=== PATIENT | female | born 1995 | race Caucasian/White ===

== ENCOUNTER 2018-01-21 19:11 | Emergency (ER) | payer OTHER, SELFPAY ==
[2018-01-21 19:22] VITALS: BP 106/52; PULSE 54; RESP 16; TEMP 37.3; O2SAT 96; BMI 23.0
--- NOTE | 2018-01-21 19:55 | ED.ABDPAIN ---
HPI - Abdominal Pain <MI Cosme - Last Filed: 01/21/18 22:23> General Chief Complaint: Abdominal Pain Stated Complaint: SENT FROM WALK IN FOR CT Time Seen by Provider: 01/21/18 19:17 Source: patient Mode of arrival: ambulatory Limitations: no limitations History of Present Illness HPI narrative: 22-year-old female here for complaint of suprapubic pain over the past 5-6 days. She states that she was playing rugby when she had a collision with another player who is knee hit her in the abdomen there. She states that she was seen in [place] for this same incident and head CT done. She reports that it was reported that she had some bleeding in her muscle area and also had some fluid in her abdomen and was requested that she get a repeat CT later in the week. She is here to get repeat CT. She reports that she has had some improvement of her abdominal pain. She denies any blood in her urine. No fevers no chills. No other concerns or complaints at this time. complaint: abdominal pain Related Data Home Medications Medication Instructions Recorded Confirmed No Known Home Medications 01/21/18 01/21/18 Allergies Allergy/AdvReac Type Severity Reaction Status Date / Time No Known Drug Allergies Allergy Unverified 01/21/18 18:09 Review of Systems <MI Cosme - Last Filed: 01/21/18 22:23> Constitutional Denies chills, Denies fever(s), Denies lethargy and Denies weakness Eyes Denies change in vision, Denies eye discharge, Denies irritation and Denies loss of vision ENT Ears, Nose, Mouth, and Throat: Denies change in voice, Denies neck pain and Denies sore throat Cardiovascular Denies chest pain, Denies irregular heart rhythm, Denies lightheadedness, Denies palpitations, Denies dyspnea, Denies dyspnea on exertion and Denies orthopnea Respiratory Denies cough, Denies dyspnea, Denies dyspnea on exertion and Denies wheezing Gastrointestinal Gastrointestinal: Reports abdominal pain, Denies change in bowel habits, Denies diarrhea, Denies nausea and Denies vomiting Musculoskeletal Denies neck pain Neurologic Denies loss of vision and Denies weakness Endocrine Denies palpitations Allergic/Immunologic Denies wheezing Exam <MI Cosme - Last Filed: 01/21/18 22:23> Initial Vital Signs Initial Vital Signs: Vital Signs Temperature 99.2 F 01/21/18 19:22 Pulse Rate 54 L 01/21/18 19:22 Respiratory Rate 16 01/21/18 19:22 Blood Pressure 106/52 L 01/21/18 19:22 Pulse Oximetry 96 01/21/18 19:22 Const General: cooperative and well developed Nutritional Appearance: well nourished Orientation: alert, awake, oriented x3 and not confused [facility] Mouth: oral mucosae normal and moist mucous membranes Eyes General: appearance normal, both eyes and all related structures Eyelids: eyelids normal Conjunctivae: conjunctivae normal Sclera: sclerae normal Pupils: PERRL EOM: EOM intact bilaterally Neck Neck: normal visual inspection, trachea midline, No lymphadenopathy, No midline deformity and No JVD Lymphatic: No lymphedema Chest Chest: normal inspection of the chest Resp Effort & Inspection: normal respiratory effort, able to speak in complete sentences, no respiratory distress and no use of accessory muscles Auscultation: clear to auscultation bilaterally, no rales, no rhonchi and no wheezes Cardio Rate: regular rate Rhythm: regular rhythm Heart Sounds: no click, no gallops, no murmurs and no rubs Pulses: normal peripheral pulses GI Inspection: non-distended Palpation: soft, no hepatosplenomegaly, No guarding, No pulsatile mass and No tender Auscultation: normal bowel sounds Skin General: no rashes or lesions noted, No jaundice and No petechiae Neuro General: alert, oriented x3, gait normal and no focal motor deficits Speech: speech normal <Italo Rivera DO - Last Filed: 01/22/18 02:13> Initial Vital Signs Initial Vital Signs: Vital Signs Temperature 99.2 F 01/21/18 19:22 Pulse Rate 54 L 01/21/18 19:22 Respiratory Rate 16 01/21/18 19:22 Blood Pressure 106/52 L 01/21/18 19:22 Pulse Oximetry 96 01/21/18 19:22 Course <MI Cosme - Last Filed: 01/21/18 22:23> Orders Ordered: ED Orders 01/21/18 20:09 Complete Blood Count AUTO DIFF Stat Comprehensive Metabolic Panel Stat 01/21/18 21:06 CT abdomen pelvis w con Stat Discontinued Medications Sodium Chloride (Normal Saline 0.9%) 1,000 mls @ 1,000 mls/hr IV BOLUS ONE Stop: 01/21/18 21:00 Last Infusion: 01/21/18 21:37 Dose: 0 mls/hr Admin: 01/21/18 20:19 Dose: 1,000 mls/hr Vital Signs - 8 hr 01/21/18 19:22 01/21/18 19:57 01/21/18 20:41 Temperature 99.2 F 99.2 F 98.0 F Pulse Rate 54 L 54 L 50 L Respiratory Rate 16 16 16 Blood Pressure 106/52 L 106/52 L Blood Pressure [Right Arm] 97/54 L Pulse Oximetry 96 96 100 01/21/18 22:17 Temperature 97.4 F L Pulse Rate 56 L Respiratory Rate 16 Blood Pressure Blood Pressure [Right Arm] 97/53 L Pulse Oximetry 100 <Italo Rivera DO - Last Filed: 01/22/18 02:13> Orders Ordered: ED Orders 01/21/18 20:09 Complete Blood Count AUTO DIFF Stat Comprehensive Metabolic Panel Stat 01/21/18 21:06 CT abdomen pelvis w con Stat Discontinued Medications Sodium Chloride (Normal Saline 0.9%) 1,000 mls @ 1,000 mls/hr IV BOLUS ONE Stop: 01/21/18 21:00 Last Infusion: 01/21/18 21:37 Dose: 0 mls/hr Admin: 01/21/18 20:19 Dose: 1,000 mls/hr Vital Signs - 8 hr 01/21/18 19:22 01/21/18 19:57 01/21/18 20:41 Temperature 99.2 F 99.2 F 98.0 F Pulse Rate 54 L 54 L 50 L Respiratory Rate 16 16 16 Blood Pressure 106/52 L 106/52 L Blood Pressure [Right Arm] 97/54 L Pulse Oximetry 96 96 100 01/21/18 22:17 Temperature 97.4 F L Pulse Rate 56 L Respiratory Rate 16 Blood Pressure Blood Pressure [Right Arm] 97/53 L Pulse Oximetry 100 MDM - Abdominal Pain <MI Cosme - Last Filed: 01/21/18 22:23> Lab Data Result diagrams: 01/21/18 20:09 01/21/18 20:09 Lab Results 01/21/18 01/21/18 Range/Units 20:09 20:09 WBC 5.9 (4.5-11.0) X10^3/uL RBC 4.01 (4.0-5.2) X10^6/uL Hgb 12.4 (12.0-16.0) g/dL Hct 37.4 (36-46) % MCV 93.3 (80-100) fL MCH 30.8 (26-34) PG MCHC 33.0 (30-36) % RDW 14.0 (11.6-14.8) % Plt Count 277 (150-400) X10^3/uL Neut % (Auto) 44.5 L (50-75) % Lymph % (Auto) 46.7 H (25-40) % Pleasants % (Auto) 5.8 (3-14) % Eos % (Auto) 2.1 (2-4) % Baso % (Auto) 0.9 (0-2) % Neut # (Auto) 2600 L (2748-6906) /uL Sodium 140 (137-145) mmol/L Potassium 4.1 (3.4-5.1) mmol/L Chloride 102 (98-107) mmol/L Carbon Dioxide 28 (22-32) mmol/L BUN 20 H (7-17) mg/dL Creatinine 0.80 (0.52-1.04) mg/dL Estimated GFR > 60.0 (>60) mL/min BUN/Creatinine Ratio 25.0 H (6-22) Glucose 88 (70-100) mg/dL Calcium 9.3 (8.4-10.2) mg/dL Total Bilirubin 0.3 (0.2-1.3) mg/dL AST 25 (14-36) IU/L ALT 22 (9-52) IU/L Alkaline Phosphatase 45 (38-126) U/L Total Protein 7.5 (6.3-8.2) g/dL Albumin 4.6 (3.5-5.0) g/dL Globulin 2.9 (1.7-4.1) g/dL Albumin/Globulin Ratio 1.6 (1.0-2.8) Point of care testing: Point of Care Testing Test Results Negative Imaging Data CT scan - abdomen: Radiologist's impression: PROCEDURE: CT ABDOMEN PELVIS W CON INDICATIONS: Abdominal pain status post rugby injury TECHNIQUE: After the administration of oral and intravenous contrast, 5 mm thick sections acquired from the diaphragms to the symphysis. 5 mm thick coronal and sagittal reformats were performed. For radiation dose reduction, the following was used: automated exposure control, adjustment of mA and/or kV according to patient size. COMPARISON: None. FINDINGS: Image quality: Excellent. ABDOMEN: Lung bases: Lung bases are clear. Heart size is normal. Solid organs: The liver demonstrates mild heterogeneous enhancement without evidence of laceration, subcapsular hematoma, or mass lesion. Gallbladder appears within normal limits without calcified gallstones. Biliary system is non-dilated. Pancreas enhances normally without peripancreatic fluid collections or evidence of transection. Spleen is normal in size and enhancement. No adrenal nodules. Kidneys are normal in size and enhancement, without hydronephrosis. No perinephric fluid collections. Peritoneum and bowel: Stomach, small bowel, and colon loops are normal in caliber and wall thickness. No free fluid or air. Nodes and vessels: No retroperitoneal or mesenteric adenopathy. Aorta and inferior vena cava are normal in caliber. There is a small amount of fluid density tracking along the proximal celiac and superior mesenteric arteries and branches with attenuation values higher than expected for simple fluid. The findings are compatible with a small mesenteric hematoma. No evidence of active extravasation. The celiac, superior mesenteric, and inferior mesenteric arteries appear patent. The renal arteries also appear patent bilaterally. There is heterogeneity likely reflecting mixing artifact within the superior mesenteric vein. Miscellaneous: No ventral hernias. No discrete abdominal wall hematomas. PELVIS: Genitourinary: Bladder wall thickness is normal. There are small cysts in the ovaries bilaterally likely representing follicular cysts are Miscellaneous: No inguinal hernias or adenopathy. Bones: No suspicious bony lesions. No vertebral body compression fractures. IMPRESSION: 1. Small amount of fluid density tracking along the mesenteric root along the proximal mesenteric vessels consistent with a small hematoma. No evidence of active extravasation. 2. No intraperitoneal free fluid or evidence of solid organ injury. Findings discussed with MI Cosme on 01/21/18 at 10:10 PM. Dictated by: Jerod Dias M.D. on 01/21/2018 at 22:04 Approved by: Jerod Dias M.D. on 01/21/2018 at 22:16 MDM Narrative Medical decision making narrative: CBC and Chem panel were obtained were unremarkable. Urinalysis from walk-in clinic shows no urinary tract infection. Urine was negative. CT of the abdomen was obtained and shows small amount of fluid in the mesentery consistent with a small hematoma. No active bleeds seen inside the abdomen. No signs of organ damage or injury. [id number] Tylenol Motrin as needed for any discomfort. Follow up with primary care provider in the next week for re-evaluation. For any worsening symptoms return to the emergency room. <Italo Rivera DO - Last Filed: 01/22/18 02:13> Lab Data Lab Results 01/21/18 01/21/18 Range/Units 20:09 20:09 WBC 5.9 (4.5-11.0) X10^3/uL RBC 4.01 (4.0-5.2) X10^6/uL Hgb 12.4 (12.0-16.0) g/dL Hct 37.4 (36-46) % MCV 93.3 (80-100) fL MCH 30.8 (26-34) PG MCHC 33.0 (30-36) % RDW 14.0 (11.6-14.8) % Plt Count 277 (150-400) X10^3/uL Neut % (Auto) 44.5 L (50-75) % Lymph % (Auto) 46.7 H (25-40) % Pleasants % (Auto) 5.8 (3-14) % Eos % (Auto) 2.1 (2-4) % Baso % (Auto) 0.9 (0-2) % Neut # (Auto) 2600 L (9476-8243) /uL Sodium 140 (137-145) mmol/L Potassium 4.1 (3.4-5.1) mmol/L Chloride 102 (98-107) mmol/L Carbon Dioxide 28 (22-32) mmol/L BUN 20 H (7-17) mg/dL Creatinine 0.80 (0.52-1.04) mg/dL Estimated GFR > 60.0 (>60) mL/min BUN/Creatinine Ratio 25.0 H (6-22) Glucose 88 (70-100) mg/dL Calcium 9.3 (8.4-10.2) mg/dL Total Bilirubin 0.3 (0.2-1.3) mg/dL AST 25 (14-36) IU/L ALT 22 (9-52) IU/L Alkaline Phosphatase 45 (38-126) U/L Total Protein 7.5 (6.3-8.2) g/dL Albumin 4.6 (3.5-5.0) g/dL Globulin 2.9 (1.7-4.1) g/dL Albumin/Globulin Ratio 1.6 (1.0-2.8) Point of care testing: Point of Care Testing Test Results Negative Discharge Plan Departure Patient Disposition: Home Clinical Impression: Abdominal pain Discharge Date/Time: 01/21/18 22:37 Interventions: ED Discharge Assessment Last Done: 01/21/18 22:36 Instructions: DI for Abdominal Pain-Adult Activity Restrictions/Additional Instructions: Laboratory results today were unremarkable. CT of the abdomen shows small amount of fluid in the mesentery of the abdomen consistent with a small hematoma that should resolve on its own. No other findings on CT. Use [id number] Tylenol or Motrin as needed for any discomfort. Follow up with primary care provider in a week for further evaluation. For any worsening symptoms return to the emergency room. Prescriptions: No Action No Known Home Medications RF: 0 Referrals: [facility] [Provider Group] <Italo Rivera DO - Last Filed: 01/22/18 02:13> [facility] ED Attending Ollie Attestation: I was available for consultation during this patient's emergency department encounter
[2018-01-21 19:57] VITALS: BP 106/52; PULSE 54; RESP 16; TEMP 37.3; O2SAT 96; BMI 23.0
[2018-01-21] MEDS: SODIUM CHLORIDE 0.9% 1,000 ML 1000 ML IV (20:19)
[2018-01-21 20:20] LABS: Add Manual Diff / Slide Review NO; Basophils Percent Auto 0.9 % (0-2); Eosinophils Percent Auto 2.1 % (2-4); Hematocrit 37.4 % (36-46); Hemoglobin 12.4 g/dL (12.0-16.0); Lymphocytes Percent Auto 46.7 % (25-40); Mean Corpuscular Hemoglobin 30.8 PG (26-34); Mean Corpuscular Volume 93.3 fL (80-100); Monocytes Percent Auto 5.8 % (3-14); Neutrophils Absolute Auto 2600 /uL (3000-5900); Neutrophils Percent Auto 44.5 % (50-75); Platelet Count 277 X10^3/uL (150-400); Red Blood Cell Count 4.01 X10^6/uL (4.0-5.2); White Blood Cell Count 5.9 X10^3/uL (4.5-11.0)
[2018-01-21 20:30] LABS: Alanine Aminotransferase 22 IU/L (9-52); Albumin 4.6 g/dL (3.5-5.0); Albumin Globulin Ratio 1.6 (1.0-2.8); Alkaline Phosphatase 45 U/L (38-126); Aspartate Aminotransferase 25 IU/L (14-36); Bilirubin Total 0.3 mg/dL (0.2-1.3); Blood Urea Nitrogen 20 mg/dL (7-17); Calcium 9.3 mg/dL (8.4-10.2); Carbon Dioxide 28 mmol/L (22-32); Chloride 102 mmol/L (98-107); Estimated Glomerular Filt Rate > 60.0 mL/min (>60); Globulin 2.9 g/dL (1.7-4.1); Glucose 88 mg/dL (70-100); HEMOLYSIS < 15 (0-50); Potassium 4.1 mmol/L (3.4-5.1); Sodium 140 mmol/L (137-145); Total Protein 7.5 g/dL (6.3-8.2)
[2018-01-21 20:41] VITALS: BP 97/54; PULSE 50; RESP 16; TEMP 36.7; O2SAT 100
--- NOTE | 2018-01-21 21:06 | DI.CT.S_ITS ---
PROCEDURE: CT ABDOMEN PELVIS W CON INDICATIONS: Abdominal pain status post rugby injury TECHNIQUE: After the administration of oral and intravenous contrast, 5 mm thick sections acquired from the diaphragms to the symphysis. 5 mm thick coronal and sagittal reformats were performed. For radiation dose reduction, the following was used: automated exposure control, adjustment of mA and/or kV according to patient size. COMPARISON: None. FINDINGS: Image quality: Excellent. ABDOMEN: Lung bases: Lung bases are clear. Heart size is normal. Solid organs: The liver demonstrates mild heterogeneous enhancement without evidence of laceration, subcapsular hematoma, or mass lesion. Gallbladder appears within normal limits without calcified gallstones. Biliary system is non-dilated. Pancreas enhances normally without peripancreatic fluid collections or evidence of transection. Spleen is normal in size and enhancement. No adrenal nodules. Kidneys are normal in size and enhancement, without hydronephrosis. No perinephric fluid collections. Peritoneum and bowel: Stomach, small bowel, and colon loops are normal in caliber and wall thickness. No free fluid or air. Nodes and vessels: No retroperitoneal or mesenteric adenopathy. Aorta and inferior vena cava are normal in caliber. There is a small amount of fluid density tracking along the proximal celiac and superior mesenteric arteries and branches with attenuation values higher than expected for simple fluid. The findings are compatible with a small mesenteric hematoma. No evidence of active extravasation. The celiac, superior mesenteric, and inferior mesenteric arteries appear patent. The renal arteries also appear patent bilaterally. There is heterogeneity likely reflecting mixing artifact within the superior mesenteric vein. Miscellaneous: No ventral hernias. No discrete abdominal wall hematomas. PELVIS: Genitourinary: Bladder wall thickness is normal. There are small cysts in the ovaries bilaterally likely representing follicular cysts are Miscellaneous: No inguinal hernias or adenopathy. Bones: No suspicious bony lesions. No vertebral body compression fractures. IMPRESSION: 1. Small amount of fluid density tracking along the mesenteric root along the proximal mesenteric vessels consistent with a small hematoma. No evidence of active extravasation. 2. No intraperitoneal free fluid or evidence of solid organ injury. Findings discussed with MI Cosme on 01/21/18 at 10:10 PM. Dictated by: Jerod Dias M.D. on 01/21/2018 at 22:04 Approved by: Jerod iDas M.D. on 01/21/2018 at 22:16
[2018-01-21 22:17] VITALS: BP 97/53; PULSE 56; RESP 16; TEMP 36.3; O2SAT 100
== END 2018-01-21 22:37 | disposition home or self-care (01) ==
PROVIDERS: Emergency Provider Nurse Practitioner Family
DX: R10.9 Unspecified abdominal pain (principal)
CPT/HCPCS: 74177; 80053; 81025; 85025; 96360; 99283; 99285; Q9967